=== PATIENT | male | born 1995 | race Two or more races ===

== ENCOUNTER 2023-06-24 19:17 | Inpatient (IN) | payer OTHER, SELFPAY ==
--- NOTE | 2023-06-24 22:25 | PC.ADMIT ---
28 yr old male admitted to [facility] from [facility] for an acute episode of psychosis. Medical records state hx Schizophrenia. Patient reports no therapist and that his large family keeps him in check and let him know when he is not acting right. Family is concerned and does not feel patient is safe to return home or to the community without the proper treatment. It was reported that the patient has been experiencing manic episodes, responding to internal stimuli, paranoia, and violent/threatening behaviors. Patients father was murdered 3 years ago and unsolved. Before the patient entered the unit and signed the CV he states no meds . RN explained that it was his choice if he didn't want to take meds. Patient reports he smokes marijuana to help him and that he is always anxious . He appears a little anxious/tense but cooperative with limited intake. When asked what brought him in he reports having a feeling in his chest like something was going to happen but nothing happened . He states he recently got out of court and had alot of stress. He states he has no legal issues currently and has no restraining orders. Skin check administered upon admission. When RN showed him to his room, he walked right over to the patient sleeping in the other bed and asked the RN whos this ? I dont want to room with him, I want to room with her speaking of a female patient coming out of the room across the sanders. He made that statement to the female patient. Patient needs boundries or doesnt have any. He has a girlfriend and 3 children. One of his children is with his previous girlfriend. His youngest is 5 months. He reports having a very good family support system. He signed a 3 day. He reports he has been to [facility] and [facility] but the records state that this his his first inpatient psychiatric hospitalization. He had an IM of Haldol at [facility] which he states made him sleep. He denies SI/HI and AH/VH. He states the only triggers are when someone disrespects him and that what helps him are music and a journal. He has no currently PCP or therapist and needs are for provider/therapy support as an outpatient. Patient has been isolative to room [facility] and there has been no issues. Will continue to monitor behaviors and sleep overnight and continue care with Behavioral health team in the morning.
[2023-06-24 23:48] VITALS: BP 150/90; PULSE 80; RESP 18; TEMP 36.7; O2SAT 98
[2023-06-25 08:55] VITALS: BP 154/53; PULSE 115; RESP 16; TEMP 36.2; O2SAT 99
[2023-06-25 09:07] LABS: Alanine Aminotransferase 44 U/L (0-40); Albumin Level 4.7 g/dL (3.5-5.0); Alkaline Phosphatase 85 U/L (39-117); Anion Gap 12 (12-20); Aspartate Amino Transferase 39 U/L (5-37); Bilirubin Total 0.9 mg/dL (0.0-1.0); Blood Urea Nitrogen 11 mg/dL (9-16); Calcium 9.8 mg/dL (8.4-10.2); Carbon Dioxide 25 mmol/L (22-29); Chloride 105 mmol/L (96-108); Cholesterol 234 mg/dL (<200); Estimated Glomerular Filt Rate > 60; Glucose Fasting 134 mg/dL (60-99); HDL Cholesterol 38 mg/dL (>40); LDL Cholesterol Calculated 176 mg/dL (<100); Potassium 3.9 mmol/L (3.3-5.1); Sodium 138 mmol/L (135-145); Total Protein 7.8 g/dL (6.5-8.0); Triglycerides 103 mg/dL (<150)
--- NOTE | 2023-06-25 11:16 | P.CONHOSP_ITS ---
History of Present Illness Data of Consult Service Date: 06/25/23 Primary Care Provider: None Physician HPI Reason for consult: Admission H&P Pt is a 28-year-old male with a PMH significant for?schizophrenia not on any chronic home medications who is admitted to psychiatry unit for auditory and visual hallucinations, aggression, and paranoia. Patient's mother apparently called EMS to report patient was in acute psychosis and she had concerns for her safety. Medical consult for admission H&P. ?Patient unavailable for interview and exam. Review of [facility] medical records indicates patient had no acute medical complaints at time of presentation and does not appear to have any chronic medical conditions and not on home prescription medications. CBC and BMP grossly unremarkable. No leukocytosis. Stable H&H. No electrolyte abnormalities. Renal and hepatic function at baseline. Toxicology negative except for marijuana. Review of Systems 2 Review of Systems: Unable to obtain [facility] Medical History (Updated 06/25/23 @ 12:33 by YARELIS Rosado) Schizophrenia Social History Household Members: Significant Other and Children Housing: Apartment Do you presently have visiting nurse or other home services: No Patient Tobacco Use Status: Never used Tobacco Smoked in Last 30 Days: No e-Cigarette/Vaping Use: Never Used Patient Interested in Nicotine Replacement: No Patient Given Instructions on How to Stop Smoking: No Second Hand Smoke Exposure: No Use of substances other than those prescribed or required for medical reasons: Yes Substance Use Type: Marijuana Substance Use Frequency: Chronic Longstanding Last Used Substance: Just Prior to Admission Currently Displaying Signs/Symptoms of Drug Intoxication Withdrawal: No Any prior treatment program specific to substance use: No Have you been hit, kicked, punched, or otherwise hurt by someone within the past year? If so, by whom?: No Do you feel safe in your current relationship?: Yes Is there a partner from a previous relationship who is making you feel unsafe now?: No Are you made to feel afraid or neglected: No Spiritual Healthcare Practices: none Advance Directives: No Advance Directives Information Provided: No Do you have thoughts of harming others: None Do you have a plan to hurt others: No Plan Recently lost weight without trying: No Eating poorly because of decreased appetite: No Nutrition Risks: No Nutritional Risk Poor oral hygiene: No Meds Allergies Allergy/AdvReac Type Severity Reaction Status Date / Time seafood Allergy Intermediate Unknown Verified 06/24/23 19:26 Active Medications: Current Medications Acetaminophen (Acetaminophen 325 Mg Tablet) 650 mg PO Q6H PRN PRN Reason: Headache/Pain Mild Scale (1-3) Al Hydroxide/Mg Hydroxide (Magnesium Hydrox/Alum Hydrox 30 Ml Oral.Susp) 30 ml PO Q6H PRN PRN Reason: Heartburn/Nausea Hydroxyzine HCl (Hydroxyzine Hcl 25 Mg Tablet) 25 mg PO Q6H PRN PRN Reason: Anxiety Magnesium Hydroxide (Milk Of Magnesia 30 Ml Oral.Susp) 30 ml PO DAILY PRN PRN Reason: Constipation Trazodone HCl (Trazodone Hcl 50 Mg Tablet) 50 mg PO BEDTIME MRX1 PRN PRN Reason: Insomnia Physical Exam 2 Vital Signs and Narrative: Vital Signs: Last Vital Signs Temp 97.1 F 06/25/23 08:55 Pulse 115 H 06/25/23 08:55 Resp 16 06/25/23 08:55 BP 154/53 H 06/25/23 08:55 Pulse Ox 99 06/25/23 08:55 O2 Del Method Room Air 06/25/23 08:55 Patient unavailable for exam Results Labs 06/25/23 08:43 Labs: Laboratory Results - last 24 hr 06/25/23 08:43 Anion Gap 12 Estim Creat Clear Calc TNP Estimated GFR > 60 Fasting Glucose 134 H Calcium 9.8 Total Bilirubin 0.9 AST 39 H ALT 44 H Alkaline Phosphatase 85 Total Protein 7.8 Albumin 4.7 Triglycerides 103 Cholesterol 234 H LDL Cholesterol, Calc 176 H HDL Cholesterol 38 L Assessment and Plan (1) Medical clearance for psychiatric admission: Status: Acute Plan Pt is a 28-year-old male with a PMH significant for?schizophrenia not on any chronic home medications who is admitted to [facility] psychiatry unit for auditory and visual hallucinations, aggression, and paranoia. Patient's mother apparently called EMS to report patient was in acute psychosis and she had concerns for her safety. Medical consult for admission H&P. ?Patient unavailable for interview and exam. Mood disorder Plan as per Psychiatry Patient otherwise does not appear to have any chronic medical conditions. Thank you for allowing us to participate in the care of this patient. Signing off at this time. Please re-consult if any acute complaints or issues arise.
[2023-06-25] MEDS: LORazepam 0.5 MG TABLET PO ×2 (14:01→20:07)
--- NOTE | 2023-06-25 16:04 | P.HPPS_ITS ---
HPI Date of Service: 06/25/23 Chief Complaint: unspecified schizophrenia Sources of Information: patient interviewed, chart reviewed and crisis/core team assessment reviewed HPI Subjective Notes: Palacio Warning Healthcare Proxy: No Guardianship: No Medical Problems Affecting Mental Status: No Narrative: Patient is a 28-year-old male who was admitted to on a conditional voluntary after he was assessed at [facility] due to auditory and visual hallucinations aggression and paranoia. His mother called EMS reporting acute psychosis and concerns of safety the patient was calm and cooperative during interview he intermittently became upset but remained in behavioral control. He reports that prior to admission he had not been sleeping for 2-3 nights due to the detained by the police. He reports that he was at a local [employer] when someone mostly claimed he had a gun and they called the police. The patient states that he got upset because the workers at [employer] got his order incorrect he denies threatening anyone and he denies having a gun. He reports he was put in the back but cruiser and held a night in. He then was released without any charges. He states he is very upset and very anxious about the LDL and did not sleep for 3 nights after that. He denies auditory or visual hallucinations he denies suicidal ideation or homicidal ideation. He denies depression. He does report anxiety daily and high stress due to work financial pressure and the need to take care of his mother and his girlfriend and his children. He has no outpatient providers. He reports he is open to outpatient therapy. He was initially refusing to take medication but after discussing he agreed to try a low dose of medication for his anxiety. And a low dose of medication for sleep and mood. He reports that he has had bad reactions to medications in the past but he is vague about where and how he tried these medications. He does report that he uses marijuana daily up to 10 blunts a day. He states that the 3 and that it helps with his anxiety and sleep. He denies problems with concentration and focus. He reports that prior to this incident with the police he was functioning well working full-time. Past Psychiatric History: Patient denies any prior psychiatric treatment history Medical Evaluation Reviewed: Yes PMF Narrative: no medical problems history of asthma in childhood Family History: Patient states he grew up in [place] until he was 9 years old and then moved back and forth from [place] to [place] lived with his mother his father from gunshot in [place] in 2014 according to the patient (in the record it says 3 years ago) patient states that he is 1 of 15 siblings. Patient states that he has a girlfriend at 2 biological children and 1 stepchild. 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11 Substance History: Daily THC use 10 blunts a day he denies any other substance use Trauma History: Loss of his father to murder by gunshot Diagnostics Vital Signs (24Hr): Vital Signs - 24 hr 06/24/23 23:48 06/25/23 08:55 Temperature 98.0 F 97.1 F Pulse Rate 80 115 H Respiratory Rate 18 16 Blood Pressure 150/90 H 154/53 H Pulse Oximetry 98 99 Oxygen Delivery Method Room Air Labs 06/25/23 08:43 Labs: Laboratory Results - last 48 hr 06/25/23 08:43 Sodium 138 Potassium 3.9 Chloride 105 Carbon Dioxide 25 Anion Gap 12 BUN 11 Creatinine 0.91 Estim Creat Clear Calc TNP Estimated GFR > 60 Fasting Glucose 134 H Calcium 9.8 Total Bilirubin 0.9 AST 39 H ALT 44 H Alkaline Phosphatase 85 Total Protein 7.8 Albumin 4.7 Triglycerides 103 Cholesterol 234 H LDL Cholesterol, Calc 176 H HDL Cholesterol 38 L Meds/Allergies Meds Narrative: none Allergies Allergies Allergy/AdvReac Type Severity Reaction Status Date / Time seafood Allergy Intermediate Unknown Verified 06/24/23 19:26 Mental Status Exam Mental Status Exam Patient Appearance: Well Grooomed and Appropriate Patient Orientation: Person, Place, Time and Situation Level of Consciousness: Awake and Restless Patient Behavior: Appropriate, Cooperative, Suspicious, Anxious and Resistive to Care Mood Description: Calm, Anxious and Apprehensive Affect Description: Anxious Patient Cognition Impaired: Yes Ability to Follow Directions: Good Speech Pattern: Spontaneous Speech and Cofabulation (question of at times- when vague) Memory Description: Episodic Impaired Hallucinations: None (pt denies ) Delusions: Paranoid Ideation (pt apprehensive and guarded possible paranoia) Thought Process: Distracted, Goal Oriented and Evasive Thought Content: positive for Goal Oriented Judgement: Poor Judgement and Insight: insight poor Assessment & Plan Assessment & Plan (1) Medical clearance for psychiatric admission: Status: Acute Code(s): Z00.8 - Encounter for other general examination (2) Unspecified mood [affective] disorder: Status: Acute Code(s): F39 - Unspecified mood [affective] disorder (3) Generalized anxiety disorder: Status: Acute Code(s): F41.1 - Generalized anxiety disorder Plan Pt is a 28-year-old male with a PMH significant for?schizophrenia not on any chronic home medications who is admitted to [facility] psychiatry unit for auditory and visual hallucinations, aggression, and paranoia. Patient's mother apparently called EMS to report patient was in acute psychosis and she had concerns for safety. He has no prior psychiatric history and no outpatient providers. Plan Conditional voluntary 3 days admitted and up on Friday 15 minute checks hospitalist consult Start Seroquel 25 mg at bedtime Ativan 0.5 mg 1 tablet twice a day Collect collateral information discharge planning with team Patient educated on: diagnosis, medication risk/benefits and therapeutic strategies Informed Consent: understands and further education needed Reason for continued inpatient stay Substantial Risk for: inability to function and rapid decompensation Statement Statement: I have reviewed the history and physical and performed a pertinent examination on my patient. No changes have occurred unless specified. If the History and Physical was not performed prior to admission, the Hospitalist's service will be consulted for completing the admission physical. Time Spent With Patient Time: Total time managing care of this patient today ___60_ minutes.
[2023-06-25 18:00] VITALS: BP 120/78; PULSE 90; TEMP 36.7; O2SAT 99
[2023-06-25] MEDS: QUEtiapine Fumarate 25 MG TABLET PO (20:07)
[2023-06-26] MEDS: LORazepam 0.5 MG TABLET PO ×2 (08:28→21:08)
[2023-06-26 09:16] VITALS: BP 149/73; PULSE 96; RESP 16; TEMP 36.6; O2SAT 98
--- NOTE | 2023-06-26 14:32 | HO.PSYCHPN ---
Subjective Subjective Date of Service: 06/26/23 Reason For Visit: unspecified mood disorder Subjective Notes: Conditional Voluntary and 3 Day Healthcare Proxy: No Guardianship: No Medical Problems Affecting Mental Status: No Interim History: pt seen and discussed in team; pt denies depression. endorses anxiety. wants to be discharged; feels he does not need treatment; does not want sleep medication as he felt it was too sedating in am. He reports the ativan has helped with anxiety but he can not be sedated when working. He dislikes medications in general. We discussed the need to follow up outaptietn if going to stay on medications; he states he feels calmer and ready for discharge. No auditory or visual hallucination. He denies SI or HI. Medication Compliance: Yes Side effects from medications: Yes (am sedation) Attending Groups: Intermittent Review of Systems Acute medical concerns: No Medical Review of Systems: unchanged Review of Systems Review of Systems Patient denies any complaints Yes all other systems are reviewed and are negative Mental Status Exam Mental Status Exam Patient Appearance: Well Grooomed and Appropriate Patient Orientation: Person, Place, Time and Situation Level of Consciousness: Awake and Restless Patient Behavior: Appropriate, Cooperative, Suspicious, Anxious and Resistive to Care Mood Description: Calm, Anxious and Apprehensive Affect Description: Anxious Patient Cognition Impaired: Yes Ability to Follow Directions: Good Speech Pattern: Spontaneous Speech and Cofabulation (question of at times- when vague) Memory Description: Episodic Impaired Hallucinations: None Delusions: Not Present Thought Process: Goal Oriented Thought Content: positive for Goal Oriented Judgement: Poor Judgement and Insight: little insight into mood symptoms and need for treatment Diagnostics Vital Signs (24Hr): Vital Signs - 24 hr 06/25/23 18:00 06/26/23 09:16 Temperature 98.1 F 97.8 F Pulse Rate 90 96 Respiratory Rate 16 Blood Pressure 120/78 149/73 H Pulse Oximetry 99 98 Oxygen Delivery Method Room Air Room Air Labs 06/25/23 08:43 Labs: Laboratory Results - last 48 hr 06/25/23 08:43 Sodium 138 Potassium 3.9 Chloride 105 Carbon Dioxide 25 Anion Gap 12 BUN 11 Creatinine 0.91 Estim Creat Clear Calc TNP Estimated GFR > 60 Fasting Glucose 134 H Calcium 9.8 Total Bilirubin 0.9 AST 39 H ALT 44 H Alkaline Phosphatase 85 Total Protein 7.8 Albumin 4.7 Triglycerides 103 Cholesterol 234 H LDL Cholesterol, Calc 176 H HDL Cholesterol 38 L Medications Medications Current Medications Acetaminophen (Acetaminophen 325 Mg Tablet) 650 mg PO Q6H PRN PRN Reason: Headache/Pain Mild Scale (1-3) Al Hydroxide/Mg Hydroxide (Magnesium Hydrox/Alum Hydrox 30 Ml Oral.Susp) 30 ml PO Q6H PRN PRN Reason: Heartburn/Nausea Hydroxyzine HCl (Hydroxyzine Hcl 25 Mg Tablet) 25 mg PO Q6H PRN PRN Reason: Anxiety Lorazepam (Lorazepam 0.5 Mg Tablet) 0.5 mg PO BID [facility] Last Admin: 06/26/23 08:28 Dose: 0.5 mg Magnesium Hydroxide (Milk Of Magnesia 30 Ml Oral.Susp) 30 ml PO DAILY PRN PRN Reason: Constipation Quetiapine Fumarate (Quetiapine Fumarate 25 Mg Tablet) 25 mg PO BEDTIME [facility] Last Admin: 06/25/23 20:07 Dose: 25 mg Trazodone HCl (Trazodone Hcl 50 Mg Tablet) 50 mg PO BEDTIME MRX1 PRN PRN Reason: Insomnia Allergies Allergies Allergy/AdvReac Type Severity Reaction Status Date / Time seafood Allergy Intermediate Unknown Verified 06/24/23 19:26 Assessment & Plan Assessment & Plan (1) Medical clearance for psychiatric admission: Status: Acute Code(s): Z00.8 - Encounter for other general examination (2) Unspecified mood [affective] disorder: Status: Acute Code(s): F39 - Unspecified mood [affective] disorder (3) Generalized anxiety disorder: Status: Acute Code(s): F41.1 - Generalized anxiety disorder Plan Pt is a 28-year-old male with anxiety and and mood symptoms including anger and outbursts r?schizophrenia not on any chronic home medications who is admitted to psychiatry unit for auditory and visual hallucinations, aggression, and paranoia. Patient's mother apparently called EMS to report patient was in acute psychosis and she had concerns for safety. He has no prior psychiatric history and no outpatient providers. Plan Conditional voluntary 3 days admitted and up on Friday 15 minute checks D/c Seroquel 25 mg at bedtime Ativan 0.5 mg 1 tablet twice a day encourage therapy post dischage discharge planning with team Patient educated on: diagnosis, medication risk/benefits and therapeutic strategies Informed Consent: does not understand Reason for continued inpatient stay Substantial Risk for: rapid decompensation Time Spent With Patient Time: Total time managing care of this patient today __30__ minutes.
[2023-06-26 18:00] VITALS: BP 139/84; PULSE 75; RESP 16; TEMP 36.4; O2SAT 98
[2023-06-27] MEDS: LORazepam 0.5 MG TABLET PO (09:16)
[2023-06-27 09:19] VITALS: BP 130/70; PULSE 73; RESP 18; TEMP 36.2; O2SAT 98
--- NOTE | 2023-06-27 09:52 | PM.PSYDC ---
DS: Providers Provider Date of Service: 06/27/23 Date of admission: 06/24/23 19:17 Date of discharge: 06/27/23 Primary care physician: Betina Physician Admitting clinician: Selena Ohara Attending physician on admission: Selena Ohara Consults: 06/24/23 19:25 Consult to Hospitalist Routine Comment: Consulting Provider: Hospitalist Reason For Exam: Direct admission Attending physician on discharge: Selena Ohara Discharging clinician: Selena Ohara DS: Diagnosis Discharge Diagnosis (1) Medical clearance for psychiatric admission: Start date: 06/24/23 Start time: 19:30 Status: Acute (2) Unspecified mood [affective] disorder: Start date: 06/24/23 Start time: 19:30 Status: Acute (3) Generalized anxiety disorder: Start date: 06/24/23 Start time: 19:30 Status: Acute DS: Medications Discharge Medications Home Medications: Previous Rx's Medication Instructions Recorded lorazepam 0.5 mg tablet 0.5 mg PO BID PRN anxiety #5 tabs 06/27/23 Mental Status Exam Mental Status Exam Patient Appearance: Well Grooomed and Appropriate Patient Orientation: Person, Place, Time and Situation Level of Consciousness: Awake and Restless Patient Behavior: Appropriate, Cooperative, Suspicious, Anxious and Resistive to Care Mood Description: Calm, Anxious and Apprehensive Affect Description: Anxious Patient Cognition Impaired: Yes Ability to Follow Directions: Good Speech Pattern: Spontaneous Speech and Cofabulation (question of at times- when vague) Memory Description: Episodic Impaired Judgement: Poor Judgement and Insight: poor insight Data Data Completed and Pending Completed studies during hospitalization [Text1]: 06/25/23 08:43 Sodium 138 Potassium 3.9 Chloride 105 Carbon Dioxide 25 Anion Gap 12 BUN 11 Creatinine 0.91 Estim Creat Clear Calc TNP Estimated GFR > 60 Fasting Glucose 134 H Calcium 9.8 Total Bilirubin 0.9 AST 39 H ALT 44 H Alkaline Phosphatase 85 Total Protein 7.8 Albumin 4.7 Triglycerides 103 Cholesterol 234 H LDL Cholesterol, Calc 176 H HDL Cholesterol 38 L DS: Summary Hospital Course Hospital Course: Patient was admitted to inpatient psychiatry due to unspecified psychosis. He was reportedly hearing voices and aggressive. Patient presented as very anxious and irritable. He denied voices. He denied SI or HI. He discussed using marijuana daily. He had a trial of Seroquel at bedtime but refused to continue due to sedation in the morning. Utilize p.r.n. Ativan 0 point 5 mg with good effect. He was unwilling to continue treatment. He was ambivalent about continuing outpatient treatment. He was provided education regarding mental health treatment for anxiety and stress management. He remained in behavioral control throughout the hospitalization and was discharged home. Time spent discussing smoking cessation with patient: 3 to 10 minutes Status at Discharge Cognitive/behavioral status at discharge: Alert and oriented. Expressing hope for the future. Mildly anxious. Denying SI and HI. Denying auditory or visual hallucinations. good behavioral control. Functional status at discharge: independent ambulation Overall status at discharge: patient is back to baseline Time Spent with Patient Time attestation: Total time managing care of this patient today ____ minutes. Time spent: Less than 30 minutes Discharge Plan Discharge Anticipated Discharge Date/Time: 06/27/23 11:00 Patient Disposition: Home, Self-Care Discharge Diagnosis: Generalized Anxiety Disorder Referrals: [facility] Psychiatry w Adelia Monge [Other] - 08/05/23 9:00 am (Via Telehealth) [facility] Therapy Intake w Elizabeth Gonzalez [Other] - 07/08/23 10:00 am [facility] [Other] - 1 Week (Refer to brochure for more information.) Physician,None [Primary Care Provider] - 1 Week Discharge Medications: New lorazepam 0.5 mg Tablet 0.5 mg PO BID PRN (Reason: anxiety) Qty: 5 0RF Discharge Orders: Discharge Order (Routine); Ordered 06/27/23 Ordered By: Selena Ohara Activity on Discharge: As tolerated Stand Alone Forms: Patient Portal Discharge page, Community Support Care Plan Goals: pt free of auditory or visual hallucinations anxiety reduced pt used coping skills to manage impulses and stress pt refusing medication for symptoms Health Concerns: anxiety Plan of Treatment: recommend continued therapy in outpatient setting consider follow up with psychiatrist to explore additional medications if needed Assessment: alert and oriented; anxious mood; no depression; easily frustrated but in behavioral control. denies auditory or visual hallucinations Discharge Date/Time: 06/27/23 10:50
== END 2023-06-27 10:50 | disposition home or self-care (01) | DRG 756 ==
PROVIDERS: Psychiatry & Neurology Psychiatry; Admitting Provider Psychiatry & Neurology Psychiatry; Visit Provider Clinical Nurse Specialist Psychiatric/Mental Health
DX: F41.1 Generalized anxiety disorder (principal); F39 Unspecified mood [affective] disorder
CPT/HCPCS: 36415; 80053; 80061

== ENCOUNTER → 2023-06-24 19:17 | Outpatient (BNV) | payer OTHER, SELFPAY | PROVIDERS: Admitting Provider Psychiatry & Neurology Psychiatry; Visit Provider Clinical Nurse Specialist Psychiatric/Mental Health | DX: F39 Unspecified mood [affective] disorder (principal); F41.1 Generalized anxiety disorder | CPT/HCPCS: 99231; 99232; 99233 ==

== ENCOUNTER → 2023-06-24 19:17 | Outpatient (BNV) | payer OTHER, SELFPAY | PROVIDERS: Admitting Provider Psychiatry & Neurology Psychiatry; Visit Provider Student in an Organized Health Care Education/Training Program | DX: Z02.2 Encounter for examination for admission to residential institution (principal) | CPT/HCPCS: 99429 ==

== ENCOUNTER 2023-07-02 12:20 | Inpatient (IN) | payer OTHER, SELFPAY ==
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
[2023-07-02] MEDS: LORazepam 2 MG/ML VIAL IM (12:44)
[2023-07-02] MEDS: Haloperidol Lactate 5 MG/ML VIAL 10 MG IM (12:44)
[2023-07-02] MEDS: diphenhydrAMINE HCL 50 MG/ML VIAL IM (12:44)
[2023-07-02 13:00] VITALS: BP 135/74; BP 141/77; PULSE 100; PULSE 86; RESP 18; TEMP 37.3; O2SAT 97; O2SAT 98; BMI 27.4
--- NOTE | 2023-07-02 13:58 | PC.NURSE ---
pt brought in by EMS and [facility] for behavioral concern/SI. per EMS, pt made SI statements to [facility] but then denied once with EMS. pt uncooperative in triage, responses not making sense to questions asked. pt became agitated and aggressive, security at bedside to B52 patient with assistance from LORENZO Heller from psych. pt immediately calmed down and has been sleeping since. still awaiting urine sample and bloodwork. rr even/unlabored. plan of care ongoing.
--- NOTE | 2023-07-02 16:54 | PC.NURSE ---
pt still sleeping soundly. rr even/unlabored. plan of care ongoing.
--- NOTE | 2023-07-02 17:52 | PC.NURSE ---
per Dr. Gomez, do not wake up pt for labs, vitals, etc. labs, vitals, etc. to be obtained when pt wakes up on own.
--- NOTE | 2023-07-02 19:35 | PC.NURSE ---
patient appears to remain asleep at present respirations are even and unlabored patient appears in no distress.
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
--- NOTE | 2023-07-03 03:09 | PC.NURSE ---
Assumed care of pt at 0300. PT appears to be sleeping, respirations even and unlabored. Plan of care ongoing
--- NOTE | 2023-07-03 03:22 | PC.NURSE ---
PT awake requesting meds and a shower. T/w obtained labs and provided pt with urine cup for sample. proof technician helperEm, set up bathroom. PT currently in shower- certified fire investigator standing by.
[2023-07-03] MEDS: LORazepam 1 MG TABLET 2 MG PO ×4 (03:37→21:40)
[2023-07-03 03:40] LABS: MANUAL DIFF FLAG NO
[2023-07-03 03:41] LABS: Basophils Absolute Auto 0.1 X10*3/uL (0.0-0.2); Basophils Percent Auto 0.8 % (0-2); Eosinophils Absolute Auto 0.1 X10*3/uL (0.0-0.4); Eosinophils Percent Auto 1.3 % (0-4); Hematocrit 41.1 % (42.0-52.0); Hemoglobin 14.4 g/dl (14.0-18.0); Imm Gran Abs Auto 0.02 X10*3/uL (0.00-0.03); Imm Gran Pct Auto 0.3 % (0.0-0.4); Lymphocytes Absolute Auto 3.3 X10*3/uL (1.2-4.9); Lymphocytes Percent Auto 41.6 % (20-40); Mean Corpuscular Hemoglobin 31.4 pg (27.0-33.0); Mean Corpuscular Volume 89.5 fL (80.0-98.0); Mean Platelet Volume 10.3 fL (9.4-12.4); Monocytes Absolute Auto 0.6 X10*3/uL (0.1-1.2); Monocytes Percent Auto 8.1 % (2-11); Neutrophils Absolute Auto 3.8 x10*3/uL (2.0-8.3); Neutrophils Percent Auto 47.9 % (45-73); Platelet Count 290 X10*3/uL (160-400); Red Blood Count 4.59 X10*6/uL (4.60-5.80); Red Cell Distribution Width 12.3 % (11.0-16.0)
[2023-07-03 03:42] LABS: Appearance Urine Cloudy; Color Urine Dark Yellow; Glucose Urine UA Negative (Negative); Leukocyte Esterase Urine Negative (Negative); Nitrite Urine Negative (Negative); Specific Gravity - Urine >= 1.030 (1.005-1.025); Urine Blood Negative (Negative); Urine Ketones Negative (Negative); Urine Protein Negative (Neg-Trace)
[2023-07-03 03:47] VITALS: BP 149/101; PULSE 104; RESP 18; TEMP 36.7; O2SAT 98
[2023-07-03 03:58] LABS: COVID-19 Test Negative (Negative); IDNOW Serial# 6674DD1D
[2023-07-03 04:03] LABS: Amphetamine Screen Urine Not Detected (Not Detect); Barbiturates, Urine Not Detected (Not Detect); Benzodiazepines Screen Urine Not Detected (Not Detect); Cannabinoid Screen Urine POSITIVE (Not Detect); Cocaine Screen Urine Not Detected (Not Detect); Fentanyl, urine Not Detected (Not Detect); Opiate Screen Urine Not Detected (Not Detect); Phencyclidine Screen Urine Not Detected (Not Detect)
[2023-07-03 04:19] LABS: Acetaminophen LAB < 3 mcg/mL (<30); Salicylate < 5.0 mg/dL (15-30)
[2023-07-03 04:23] LABS: Alanine Aminotransferase 71 U/L (0-40); Albumin Level 4.3 g/dL (3.5-5.0); Alkaline Phosphatase 88 U/L (39-117); Anion Gap 14 (12-20); Aspartate Amino Transferase 51 U/L (5-37); Bilirubin Total 0.5 mg/dL (0.0-1.0); Blood Urea Nitrogen 12 mg/dL (9-16); Calcium 9.6 mg/dL (8.4-10.2); Carbon Dioxide 24 mmol/L (22-29); Chloride 109 mmol/L (96-108); Estimated Glomerular Filt Rate > 60; Ethanol < 10 mg/dL; Glucose Random 102 mg/dL (60-115); Sodium 143 mmol/L (135-145); Total Protein 7.3 g/dL (6.5-8.0)
--- NOTE | 2023-07-03 08:17 | PC.NURSE ---
Assumed care of patient at 0700, patient ambulating with steady gait around BH pod, appears to be in no apparent distress, approached nurses station to ask when he could leave. This RN educated patient that he is pending CARE team evaluation, patient agreeable at this time, back to room, offering no complaints. Respirations even and unlabored. CARE team pending
--- NOTE | 2023-07-03 09:17 | PHA.MEDREC ---
Pharmacy Consult ? Medication Reconciliation Pharmacy has completed the medication reconciliation. No home meds per nursing
--- NOTE | 2023-07-03 10:37 | PC.NURSE ---
Patient approached nurses station asking for medication. He reports increased anxiety and relays that the medication I got last night, helped a lot . PRN ativan was given at 0337, patient requesting to have it again. Medication administered per MAR
--- NOTE | 2023-07-03 14:07 | MHC.CARE ---
Patient seen by CARE team, dispo for inpatient LOC.
--- NOTE | 2023-07-03 19:05 | PC.NURSE ---
patient very challenging in interaction with this news writer, difficult to redirect.
--- NOTE | 2023-07-03 19:34 | PC.NURSE ---
patient received visit from when t/w had arrived to unit, patient presents as irritable and seems to be blaming upstairs staff for his seeming resistance to start on medications for his symptoms. irritbale but asks appropriate questions in regaRDS TO MEDICAtions AND MILIEU.
[2023-07-03 19:57] VITALS: BP 149/90; PULSE 100; RESP 17; TEMP 37.1; O2SAT 100
[2023-07-03] MEDS: HaloperidoL 5 MG TABLET PO (21:40)
[2023-07-03] MEDS: diphenhydrAMINE HCL 25 MG CAPSULE 50 MG PO (21:40)
--- NOTE | 2023-07-03 21:51 | PC.NURSE ---
t/w overheard patient talking about himself in the third person just prior to admin of requested hs meds.
[2023-07-04 05:45] VITALS: BP 139/87; PULSE 74; RESP 16; O2SAT 97
--- NOTE | 2023-07-04 07:16 | PC.NURSE ---
Assumed care of patient at 0700, patient awake eating breakfast then showering, appears to be in no apparent distress. Pt offers no complaints to this Rn at this time. Respirations even and unlabored, alert and oriented x4. Continue plan of care for sec 12 inpatient bedsearch
[2023-07-04] MEDS: LORazepam 1 MG TABLET 2 MG PO ×2 (07:29→12:07)
--- NOTE | 2023-07-04 07:37 | PC.NURSE ---
Pt requesting medications for anxiety, pt provided with PRN ativan
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
[2023-07-04 13:27] VITALS: BP 121/79; PULSE 93; RESP 18; TEMP 36.2; O2SAT 98
[2023-07-04] MEDS: Lithium Carbonate ER 450 MG TABLET.ER PO ×2 (13:36→20:10)
[2023-07-04] MEDS: clonazePAM 1 MG TABLET PO ×2 (13:36→20:10)
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
[2023-07-04] MEDS: hydrOXYzine HCL 25 MG TABLET PO (16:39)
[2023-07-04 19:57] VITALS: BP 125/80; PULSE 99; RESP 16; TEMP 36.6; O2SAT 99
[2023-07-04] MEDS: QUEtiapine Fumarate 100 MG TABLET PO (20:10)
[2023-07-05 06:00] VITALS: BP 119/67; PULSE 84; RESP 16; TEMP 36.4; O2SAT 99
[2023-07-05] MEDS: clonazePAM 1 MG TABLET PO ×2 (08:31→20:56)
[2023-07-05] MEDS: Lithium Carbonate ER 450 MG TABLET.ER PO ×2 (08:31→20:55)
[2023-07-05 09:15] LABS: Alanine Aminotransferase 92 U/L (0-40); Albumin Level 4.9 g/dL (3.5-5.0); Alkaline Phosphatase 90 U/L (39-117); Anion Gap 11 (12-20); Aspartate Amino Transferase 52 U/L (5-37); Bilirubin Total 0.2 mg/dL (0.0-1.0); Blood Urea Nitrogen 15 mg/dL (9-16); Calcium 10.1 mg/dL (8.4-10.2); Carbon Dioxide 28 mmol/L (22-29); Chloride 107 mmol/L (96-108); Cholesterol 208 mg/dL (<200); Creatinine Clr Calc Pharmacy 107.6; Estimated Glomerular Filt Rate > 60; Glucose Fasting 82 mg/dL (60-99); HDL Cholesterol 44 mg/dL (>40); LDL Cholesterol Calculated 136 mg/dL (<100); Potassium 4.3 mmol/L (3.3-5.1); Sodium 142 mmol/L (135-145); Total Protein 8.2 g/dL (6.5-8.0); Triglycerides 141 mg/dL (<150)
[2023-07-05] MEDS: hydrOXYzine HCL 25 MG TABLET PO (11:04)
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
[2023-07-05] MEDS: QUEtiapine Fumarate 100 MG TABLET PO (13:29)
[2023-07-05] MEDS: risperiDONE 1 MG TABLET PO ×3 (13:29→20:55)
[2023-07-05 19:25] VITALS: BP 114/78; PULSE 109; RESP 16; TEMP 36.4; O2SAT 99
[2023-07-05] MEDS: QUEtiapine Fumarate 200 MG TABLET PO (20:55)
[2023-07-06 07:30] VITALS: BP 119/80; PULSE 86; RESP 15; TEMP 36.3; O2SAT 99
[2023-07-06] MEDS: Lithium Carbonate ER 450 MG TABLET.ER PO ×2 (08:32→20:03)
[2023-07-06] MEDS: clonazePAM 1 MG TABLET PO ×2 (08:32→20:03)
[2023-07-06] MEDS: risperiDONE 1 MG TABLET PO ×3 (08:32→20:03)
[2023-07-06] MEDS: hydrOXYzine HCL 25 MG TABLET PO (13:13)
[2023-07-06] MEDS: QUEtiapine Fumarate 100 MG TABLET PO (16:43)
[2023-07-06 20:00] VITALS: BP 127/79; PULSE 106; RESP 16; TEMP 36.4; O2SAT 98
[2023-07-06] MEDS: QUEtiapine Fumarate 200 MG TABLET PO (20:03)
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
[2023-07-07 07:45] VITALS: BP 125/78; PULSE 128; RESP 16; TEMP 36.2; O2SAT 100
[2023-07-07] MEDS: Lithium Carbonate ER 450 MG TABLET.ER PO (08:25)
[2023-07-07] MEDS: risperiDONE 1 MG TABLET PO (08:25)
[2023-07-07] MEDS: clonazePAM 1 MG TABLET PO ×2 (08:25→21:03)
[2023-07-07] MEDS: QUEtiapine Fumarate 100 MG TABLET PO ×2 (09:01→14:32)
[2023-07-07] MEDS: hydrOXYzine HCL 25 MG TABLET PO (09:01)
[2023-07-07] MEDS: Lithium Carbonate 300 MG TABLET 150 MG PO (11:27)
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
[2023-07-07 19:25] VITALS: BP 134/87; PULSE 91; RESP 16; TEMP 36.1; O2SAT 100
[2023-07-07] MEDS: QUEtiapine Fumarate 200 MG TABLET PO (21:02)
[2023-07-07] MEDS: Lithium Carbonate ER 300 MG TABLET.ER 600 MG PO (21:02)
[2023-07-08] MEDS: QUEtiapine Fumarate 100 MG TABLET PO ×4 (03:53→20:24)
--- NOTE | 2023-07-08 03:56 | PC.NURSE ---
Lionel reported feeling restless and slightly agitated. Patient given Seroquel PO prn
[2023-07-08 07:45] VITALS: BP 136/75; PULSE 91; RESP 18; TEMP 36.3; O2SAT 100
[2023-07-08] MEDS: Lithium Carbonate ER 300 MG TABLET.ER 600 MG PO ×2 (08:13→20:09)
[2023-07-08] MEDS: clonazePAM 1 MG TABLET PO ×2 (08:13→20:09)
[2023-07-08] MEDS: hydrOXYzine HCL 25 MG TABLET PO ×2 (11:01→20:09)
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
[2023-07-08 19:50] VITALS: BP 119/74; PULSE 104; RESP 18; TEMP 36.2; O2SAT 99
[2023-07-08] MEDS: QUEtiapine Fumarate 200 MG TABLET PO (20:09)
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
[2023-07-09] MEDS: hydrOXYzine HCL 25 MG TABLET PO ×2 (02:28→20:27)
[2023-07-09] MEDS: QUEtiapine Fumarate 100 MG TABLET PO ×3 (02:28→10:45)
[2023-07-09 07:47] VITALS: BP 119/76; PULSE 95; RESP 16; TEMP 36.2; O2SAT 99
[2023-07-09] MEDS: clonazePAM 1 MG TABLET PO ×2 (08:03→20:25)
[2023-07-09] MEDS: Lithium Carbonate ER 300 MG TABLET.ER 600 MG PO ×2 (08:03→20:27)
[2023-07-09] MEDS: LORazepam 1 MG TABLET 2 MG PO (10:44)
[2023-07-09] MEDS: Haloperidol Lactate 5 MG/ML VIAL 10 MG IM (12:24)
[2023-07-09] MEDS: diphenhydrAMINE HCL 50 MG/ML VIAL IM (12:28)
[2023-07-09] MEDS: LORazepam 2 MG/ML VIAL IM (12:29)
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
[2023-07-09 19:40] VITALS: BP 123/78; PULSE 110; RESP 16; TEMP 36.6; O2SAT 99
[2023-07-09] MEDS: QUEtiapine Fumarate 200 MG TABLET PO (20:26)
[2023-07-10 07:00] VITALS: BMI 30.5
[2023-07-10 07:15] VITALS: BP 109/71; PULSE 102; RESP 20; TEMP 36.7; O2SAT 98
[2023-07-10] MEDS: clonazePAM 1 MG TABLET PO ×2 (07:58→21:00)
[2023-07-10] MEDS: QUEtiapine Fumarate 100 MG TABLET PO ×5 (07:58→22:55)
[2023-07-10] MEDS: Lithium Carbonate ER 300 MG TABLET.ER 600 MG PO ×2 (07:59→21:00)
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
[2023-07-10] MEDS: hydrOXYzine HCL 25 MG TABLET PO ×2 (11:20→18:50)
[2023-07-10 20:10] VITALS: BP 136/78; PULSE 99; RESP 16; TEMP 36.6; O2SAT 100
[2023-07-10] MEDS: QUEtiapine Fumarate 200 MG TABLET PO (21:00)
[2023-07-10] MEDS: HaloperidoL 5 MG TABLET PO (22:55)
[2023-07-11] MEDS: clonazePAM 1 MG TABLET PO ×2 (07:58→20:38)
[2023-07-11] MEDS: Lithium Carbonate ER 300 MG TABLET.ER 600 MG PO ×2 (07:58→20:37)
[2023-07-11] MEDS: QUEtiapine Fumarate 100 MG TABLET PO ×2 (07:58→15:07)
[2023-07-11 08:00] VITALS: BP 117/64; PULSE 94; RESP 16; TEMP 36.2; O2SAT 99
[2023-07-11 08:16] LABS: Lithium 0.61 mmol/L (0.60-1.20)
[2023-07-11 08:26] LABS: Alanine Aminotransferase 140 U/L (0-40); Albumin Level 4.1 g/dL (3.5-5.0); Alkaline Phosphatase 88 U/L (39-117); Anion Gap 12 (12-20); Aspartate Amino Transferase 70 U/L (5-37); Bilirubin Direct < 0.2 mg/dL (0.0-0.5); Bilirubin Total 0.2 mg/dL (0.0-1.0); Blood Urea Nitrogen 12 mg/dL (9-16); Calcium 9.7 mg/dL (8.4-10.2); Carbon Dioxide 25 mmol/L (22-29); Chloride 106 mmol/L (96-108); Creatinine Clr Calc Pharmacy 155.1; Estimated Glomerular Filt Rate > 60; Glucose Fasting 152 mg/dL (60-99); Potassium 3.8 mmol/L (3.3-5.1); Sodium 139 mmol/L (135-145); Total Protein 7.1 g/dL (6.5-8.0)
[2023-07-11 08:42] LABS: TSH reflex Free T4 1.98 uIU/mL (0.32-4.0)
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
[2023-07-11] MEDS: hydrOXYzine HCL 25 MG TABLET PO ×2 (13:42→20:38)
[2023-07-11] MEDS: HaloperidoL 5 MG TABLET PO (17:51)
[2023-07-11 20:10] VITALS: BP 121/80; PULSE 95; RESP 16; TEMP 36.3; O2SAT 99
[2023-07-11] MEDS: QUEtiapine Fumarate 200 MG TABLET PO (20:38)
[2023-07-12] MEDS: QUEtiapine Fumarate 100 MG TABLET PO ×3 (05:09→15:39)
[2023-07-12] MEDS: hydrOXYzine HCL 25 MG TABLET PO ×2 (05:09→19:24)
--- NOTE | 2023-07-12 05:11 | PC.NURSE ---
Lionel reported some anxiety and mild agitation. Patient given Atarax PO prn and Seroquel PO prn.
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
[2023-07-12] MEDS: clonazePAM 1 MG TABLET PO ×2 (10:02→21:27)
[2023-07-12] MEDS: Lithium Carbonate ER 300 MG TABLET.ER 600 MG PO (10:02)
[2023-07-12 13:35] VITALS: BP 117/74; PULSE 102; RESP 20; TEMP 36.9; O2SAT 99
[2023-07-12 16:45] LABS: Alanine Aminotransferase 193 U/L (0-40); Albumin Level 4.2 g/dL (3.5-5.0); Alkaline Phosphatase 95 U/L (39-117); Aspartate Amino Transferase 89 U/L (5-37); Bilirubin Direct < 0.2 mg/dL (0.0-0.5); Bilirubin Total 0.2 mg/dL (0.0-1.0); Total Protein 7.2 g/dL (6.5-8.0)
[2023-07-12 21:00] VITALS: BP 109/64; PULSE 99; RESP 16; TEMP 36.4; O2SAT 99
[2023-07-12] MEDS: QUEtiapine Fumarate 200 MG TABLET PO (21:27)
[2023-07-12] MEDS: Lithium Carbonate ER 450 MG TABLET.ER 900 MG PO (21:27)
[2023-07-13] MEDS: QUEtiapine Fumarate 100 MG TABLET PO ×3 (05:59→14:46)
[2023-07-13] MEDS: clonazePAM 1 MG TABLET PO ×2 (08:31→21:21)
[2023-07-13] MEDS: Lithium Carbonate ER 300 MG TABLET.ER 600 MG PO (08:31)
[2023-07-13 10:52] VITALS: BP 129/76; PULSE 102; RESP 20; TEMP 36.6; O2SAT 98
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
[2023-07-13] MEDS: hydrOXYzine HCL 25 MG TABLET PO (12:19)
[2023-07-13] MEDS: HaloperidoL 5 MG TABLET PO ×2 (12:19→17:52)
[2023-07-13 21:00] VITALS: BP 139/82; PULSE 111; RESP 16; TEMP 36.7; O2SAT 100
[2023-07-13] MEDS: Lithium Carbonate ER 450 MG TABLET.ER 900 MG PO (21:21)
[2023-07-13] MEDS: QUEtiapine Fumarate 200 MG TABLET PO (21:21)
[2023-07-14 04:40] LABS: HBS Num1 4.24 mIU/mL (0-7.99); HBc Num1 0.08 S/CO (0.00-0.79); HBsAGNum1 0.52 S/CO (0.00-0.99); Hepatitis A Antibody IgM 0.16 Index (0-0.79); Hepatitis B Core Antibody Nonreactive (Nonreactive); Hepatitis B Surface Antigen Negative (Negative); ~HepC Num1 0.08 S/CO (0.00-0.79); ~Hepatitis A Antibody IgM Nonreactive (Nonreactive); ~Hepatitis B Surface Antibody NONREACTIVE (Nonreactive); ~Hepatitis C Antibody Nonreactive (Nonreactive)
[2023-07-14 07:50] VITALS: BP 133/81; PULSE 88; RESP 20; TEMP 36.3; O2SAT 100
[2023-07-14 08:24] LABS: MANUAL DIFF FLAG NO
[2023-07-14 08:30] LABS: Basophils Absolute Auto 0.1 X10*3/uL (0.0-0.2); Basophils Percent Auto 0.9 % (0-2); Eosinophils Absolute Auto 0.3 X10*3/uL (0.0-0.4); Eosinophils Percent Auto 3.1 % (0-4); Hematocrit 41.9 % (42.0-52.0); Hemoglobin 14.5 g/dl (14.0-18.0); Imm Gran Abs Auto 0.21 X10*3/uL (0.00-0.03); Imm Gran Pct Auto 2.6 % (0.0-0.4); Lymphocytes Absolute Auto 3.1 X10*3/uL (1.2-4.9); Mean Corpuscular HGB Conc 34.6 g/dl (31.0-36.0); Mean Corpuscular Hemoglobin 32.4 pg (27.0-33.0); Mean Corpuscular Volume 93.5 fL (80.0-98.0); Mean Platelet Volume 10.4 fL (9.4-12.4); Monocytes Absolute Auto 0.6 X10*3/uL (0.1-1.2); Monocytes Percent Auto 7.4 % (2-11); Neutrophils Absolute Auto 3.9 x10*3/uL (2.0-8.3); Platelet Count 262 X10*3/uL (160-400); Red Blood Count 4.48 X10*6/uL (4.60-5.80); Red Cell Distribution Width 12.1 % (11.0-16.0); White Blood Count 8.1 X10*3/uL (4.8-10.8)
[2023-07-14] MEDS: QUEtiapine Fumarate 100 MG TABLET PO ×2 (08:33→14:22)
[2023-07-14] MEDS: Lithium Carbonate ER 300 MG TABLET.ER 600 MG PO (08:33)
[2023-07-14] MEDS: clonazePAM 1 MG TABLET PO (08:34)
[2023-07-14 10:14] LABS: Alanine Aminotransferase 201 U/L (0-40); Alkaline Phosphatase 97 U/L (39-117); Anion Gap 14 (12-20); Aspartate Amino Transferase 74 U/L (5-37); Bilirubin Direct < 0.2 mg/dL (0.0-0.5); Bilirubin Total 0.2 mg/dL (0.0-1.0); Blood Urea Nitrogen 10 mg/dL (9-16); Calcium 9.4 mg/dL (8.4-10.2); Carbon Dioxide 24 mmol/L (22-29); Chloride 106 mmol/L (96-108); Creatinine Clr Calc Pharmacy 140.5; Estimated Glomerular Filt Rate > 60; Glucose Random 162 mg/dL (60-115); Potassium 3.6 mmol/L (3.3-5.1); Sodium 140 mmol/L (135-145); Total Protein 7.1 g/dL (6.5-8.0)
[2023-07-14] MEDS: hydrOXYzine HCL 25 MG TABLET PO ×2 (10:32→16:10)
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
[2023-07-14] MEDS: HaloperidoL 5 MG TABLET PO (16:11)
[2023-07-14 20:27] VITALS: BP 135/75; PULSE 101; RESP 16; TEMP 36.5; O2SAT 98
[2023-07-14] MEDS: QUEtiapine Fumarate 200 MG TABLET PO (21:05)
[2023-07-14] MEDS: Lithium Carbonate ER 450 MG TABLET.ER 900 MG PO (21:06)
[2023-07-14] MEDS: clonazePAM 0.5 MG TABLET PO (21:06)
[2023-07-15 07:41] VITALS: BP 115/77; PULSE 80; RESP 16; TEMP 36.3; O2SAT 99
[2023-07-15] MEDS: QUEtiapine Fumarate 100 MG TABLET PO (08:11)
[2023-07-15] MEDS: Lithium Carbonate ER 300 MG TABLET.ER 600 MG PO (08:11)
[2023-07-15] MEDS: clonazePAM 0.5 MG TABLET PO (08:11)
[2023-07-15 09:57] LABS: Ammonia 60 umol/L (13-55)
== END 2023-07-15 09:00 | disposition home or self-care (01) | DRG 753 ==
LOC: HO.ED 17:56 → HO.PADLT16 07-04 09:16
PROVIDERS: Clinical Nurse Specialist Psychiatric/Mental Health; Physician Assistant Medical; Social Worker; Admitting Provider Registered Nurse; Emergency Provider Emergency Medicine Emergency Medical Services; Visit Provider Psychiatry & Neurology Psychiatry
DX: F31.12 Bipolar disorder, current episode manic without psychotic features, moderate (principal); Z91.148 Patient's other noncompliance with medication regimen for other reason; Z79.899 Other long term (current) drug therapy
CPT/HCPCS: 36415; 80048; 80053; 80061; 80076; 80143; 80178; 80179; 80307; 81003; 82140; 84443; 85025; 86704; 86706; 86709; 86803; 87340; 87635; 99285; J1200; J1630; J2060; S9485

== ENCOUNTER → 2023-07-04 09:04 | Outpatient (BNV) | payer OTHER, SELFPAY | PROVIDERS: Admitting Provider Registered Nurse; Emergency Provider Emergency Medicine Emergency Medical Services; Visit Provider Psychiatry & Neurology Psychiatry | DX: F31.12 Bipolar disorder, current episode manic without psychotic features, moderate (principal) | CPT/HCPCS: 99231; 99232; 99233 ==